=== PATIENT | female | born 1975 | race African-American/Black ===

== ENCOUNTER 2020-01-19 20:48 | Emergency (ER) | payer SELFPAY ==
[~2020-01-19] VITALS: Ht 165.1 cm; Wt 94.0 kg
--- NOTE | 2020-01-19 22:12 | NUR ---
PT RESTING ON [employer], APPLIED, MONITORS, SIDERAILS UP X2, CALL LIGHT WITHIN REACH. AWAITING XRAY, LAB RESULTS
--- NOTE | 2020-01-19 22:13 | NUR ---
pt to xray
[2020-01-19] MEDS ORDERED: ALBUTEROL/IPRATROPIUM 2.5MG/0.5MG, 3 ML ONE (22:15)
[2020-01-19] MEDS ORDERED: KETOROLAC 30 MG/1 ML ONE (22:24)
--- NOTE | 2020-01-19 22:28 | NUR ---
PT MEDICATED PER MAR
[2020-01-19] MEDS ORDERED: ALBUTEROL/IPRATROPIUM 2.5MG/0.5MG, 3 ML NPPB ONE (22:30)
[2020-01-19] MEDS ORDERED: KETOROLAC 30 MG/1 ML IM ONE (22:30)
[2020-01-19 22:32] LABS: BASOPHILS % (AUTO) 2 % (0-1); EOSINOPHILS # (AUTO) 0.96 x10^3/uL (0-0.4); EOSINOPHILS % (AUTO) 10 % (1-7); LYMPHOCYTES # (AUTO) 4.03 x10^3/uL (1-3.4); LYMPHOCYTES % (AUTO) 41 % (22-44); MD NO; MEAN CORPUSCULAR HEMOGLOBIN 25.5 pg (27.0-34.8); MEAN CORPUSCULAR HGB CONC 31.9 g/dL (32.4-35.8); MEAN CORPUSCULAR VOLUME 79.9 fL (80-100); MEAN PLATELET VOLUME 8.1 fL (7.4-10.4); MONOCYTES # (AUTO) 0.46 x10^3/uL (0.2-0.8); MONOCYTES % (AUTO) 5 % (2-9); NEUTROPHILS # (AUTO) 4.12 x10^3/uL (1.8-6.8); NEUTROPHILS % (AUTO) 42 % (42-75); PLATELET COUNT 529 x10^3/uL (130-400); RED BLOOD COUNT 4.12 x10^6/uL (3.82-5.3); RED CELL DISTRIBUTION WIDTH 16.4 % (9.6-15.2)
[2020-01-19 22:40] LABS: ALBUMIN 3.4 g/dL (3.4-5.0); ANION GAP 4 mmol/L (5-15); CHLORIDE 108 mmol/L (98-107); CREATININE 0.82 mg/dL (0.55-1.02)
[2020-01-19 22:44] LABS: TROPONIN I < 0.015 ng/mL (0.000-0.045)
[2020-01-19 23:16] VITALS: BP 164/92
--- NOTE | 2020-01-19 23:17 | NUR ---
PT RESTING ON GURNEY, DENIES NEEDS, STATED " I FEEL BETTER", CALL LIGHT WITHIN REACH. CHART UP FOR RECHECK
== END 2020-01-19 23:42 | disposition home or self-care (01) ==
LOC: ED 21:00
DX: J45.909 Unspecified asthma, uncomplicated (principal); R06.02 Shortness of breath; R07.89 Other chest pain; I10 Essential (primary) hypertension
CPT/HCPCS: 36415; 71046; 80048; 82040; 84484; 85025; 93005; 94640; J1885; 96372; 99285